=== PATIENT | female | born 1980 | race African-American/Black ===

== ENCOUNTER → 2023-04-09 | Emergency (ER) | payer BC ==
[~2023-04-09] VITALS: Ht 157.5 cm; Wt 56.7 kg
[~2023-04-09] MED LIST: BENICAR5 MG PO; HYDROXYCHLOROQ100 MG PO
== END | disposition left against medical advice (07) ==
LOC: ER 12:39
DX: R07.9 Chest pain, unspecified (principal); G44.89 Other headache syndrome; M54.2 Cervicalgia; M79.621 Pain in right upper arm; M32.9 Systemic lupus erythematosus, unspecified; Z88.2 Allergy status to sulfonamides